=== PATIENT | female | born 1985 | race Caucasian/White ===

== ENCOUNTER 2017-03-21 16:34 | Inpatient (IN) | payer OTHER ==
[2017-03-21] MEDS: ACETAMINOPHEN 325 MG TAB PO (18:48)
[2017-03-21] MEDS: SOD CHLORIDE 0.9% 1,000 ML IV (18:48)
[2017-03-21 19:01] LABS: ADD MAN DIFF? NO
[2017-03-21 19:06] LABS: WHITE BLOOD COUNT 12.5 10^3/ul (4.8-10.8)
[2017-03-21 19:06] LABS: HEMATOCRIT 34.5 % (37.0-47.0); HEMOGLOBIN 11.6 g/dl (12.0-16.0); MEAN CORPUSCULAR HEMOGLOBIN 26.5 pg (29.0-33.0); MEAN CORPUSCULAR HGB CONC 33.6 g/dl (32.0-37.0); MEAN CORPUSCULAR VOLUME 78.9 fl (82.0-101.0); RED BLOOD COUNT 4.37 10^6/ul (4.20-5.40)
[2017-03-21 19:07] LABS: BASOPHILS % 0.2 % (0.0-2.0); EOSINOPHILS % 0.1 % (0.0-7.0); LYMPHOCYTES # 1.5 10^3/ul (0.8-2.9); LYMPHOCYTES % 12.1 % (15.0-51.0); MEAN PLATELET VOLUME 10.2 fl (7.4-10.4); MONOCYTE # 0.5 10^3/ul (0.3-0.9); NEUTROPHIL # 10.4 10^3/ul (1.6-7.5); NEUTROPHILS % 83.1 % (39.0-77.0); PLATELET COUNT 286 10^3/UL (140-415); RED CELL DISTRIBUTION WIDTH 16.4 % (11.5-14.5)
[2017-03-21 19:23] LABS: ADD UMIC YES; UR ASCORBIC ACID 20 mg/dL (NEGATIVE); UR BACTERIA FEW /HPF (NONE SEEN); UR BILIRUBIN (Dip) NEGATIVE (NEGATIVE); UR BLOOD (Dip) NEGATIVE (NEGATIVE); UR CLARITY CLOUDY (CLEAR); UR COLOR AMBER (YELLOW); UR GLUCOSE (Dip) NEGATIVE (NEGATIVE); UR KETONES (Dip) TRACE mg/dL (NEGATIVE); UR LEUKOCYTE ESTERASE (Dip) 3+ Leu/ul (NEGATIVE); UR MUCUS MODERATE /HPF (NONE SEEN); UR NITRITE (Dip) NEGATIVE (NEGATIVE); UR RBC 13 /HPF (0-5); UR SQUAMOUS EPITHELIAL CELL FEW /HPF (FEW); UR TOTAL PROTEIN (Dip) 2+ mg/dl (NEGATIVE); UR UROBILINOGEN (Dip) 1+ mg/dL (NEGATIVE); UR WBC 37 /HPF (0-5)
[2017-03-21 19:30] LABS: ANION GAP 20 (8-16); BLOOD UREA NITROGEN 7 mg/dl (7-20); CALCIUM 9.4 mg/dl (8.4-10.2); CARBON DIOXIDE 22 mmol/L (21-31); CHLORIDE 102 mmol/L (97-110); CREATININE 0.67 mg/dl (0.44-1.00); GLUCOSE 98 mg/dl (70-220); POTASSIUM 3.9 mmol/L (3.5-5.1); SODIUM 140 mmol/L (135-144)
[2017-03-21 20:29] LABS: INR 1.23; PROTIME 15.7 Sec (11.9-14.9); PT RATIO 1.2
[2017-03-21 20:30] LABS: PARTIAL THROMBOPLASTIN TIME 37.3 Sec (25.0-35.0)
[2017-03-21] MEDS: CEFTRIAXONE 1 GM/50 ML (PMX) 50 ML IVPB (20:30)
[2017-03-21] MEDS: SODIUM CHLORIDE 0.9% 1L BAG IV* (20:30)
[2017-03-21 20:46] LABS: LACTIC ACID 0.9 mmol/L (0.5-2.0)
[2017-03-21] MEDS ORDERED: ONDANSETRON 4 MG INJ IV (23:30)
[2017-03-21] MEDS ORDERED: ACETAMINOPHEN 325 MG TAB PO (23:30)
[2017-03-22] MEDS ORDERED: BISACODYL (EC) 5 MG TAB PO
[2017-03-22] MEDS ORDERED: ONDANSETRON 4 MG TAB PO
[2017-03-22] MEDS ORDERED: morphine 2 MG INJ IV
[2017-03-22] MEDS ORDERED: DOCUSATE SODIUM 100 MG CAP PO
[2017-03-22] MEDS ORDERED: NACL 0.9% 3 ML SYG IV
[2017-03-22] MEDS: SOD CHLORIDE 0.9% 1,000 ML IV ×4 (01:06→20:32)
[2017-03-22] MEDS: HYDROCODONE/APAP (5/325) TAB PO (01:29)
[2017-03-22 01:41] LABS: LACTIC ACID 1.5 mmol/L (0.5-2.0)
[2017-03-22] MEDS: LEVOFLOXACIN 750MG/D5W (PMX) 150 ML IVPB (01:49)
[2017-03-22] MEDS: ACETAMINOPHEN 325 MG TAB PO (03:32)
[2017-03-22 05:28] LABS: ADD MAN DIFF? NO
[2017-03-22] MEDS: ACETAMINOPHEN 1000MG/100ML IV 100 ML IVPB ×4 (05:31→20:27)
[2017-03-22 05:50] LABS: WHITE BLOOD COUNT 9.6 10^3/ul (4.8-10.8)
[2017-03-22 05:50] LABS: BASOPHILS % 0.4 % (0.0-2.0); EOSINOPHILS % 0.1 % (0.0-7.0); HEMATOCRIT 28.2 % (37.0-47.0); HEMOGLOBIN 9.5 g/dl (12.0-16.0); LYMPHOCYTES # 1.4 10^3/ul (0.8-2.9); LYMPHOCYTES % 15.1 % (15.0-51.0); MEAN CORPUSCULAR HGB CONC 33.7 g/dl (32.0-37.0); MEAN CORPUSCULAR VOLUME 80.1 fl (82.0-101.0); MEAN PLATELET VOLUME 10.2 fl (7.4-10.4); MONOCYTE # 0.6 10^3/ul (0.3-0.9); MONOCYTES % 6.5 % (0.0-11.0); NEUTROPHIL # 7.4 10^3/ul (1.6-7.5); NEUTROPHILS % 77.4 % (39.0-77.0); PLATELET COUNT 221 10^3/UL (140-415); RED BLOOD COUNT 3.52 10^6/ul (4.20-5.40); RED CELL DISTRIBUTION WIDTH 16.6 % (11.5-14.5)
[2017-03-22 06:22] LABS: ALANINE AMINOTRANSFERASE 28 IU/L (13-69); ALBUMIN/GLOBULIN RATIO 1.07; ALKALINE PHOSPHATASE 54 IU/L (42-121); ANION GAP 13 (8-16); ASPARTATE AMINO TRANSFERASE 14 IU/L (15-46); BILIRUBIN,INDIRECT 0.2 mg/dl (0-1.1); BILIRUBIN,TOTAL 0.2 mg/dl (0.2-1.3); BLOOD UREA NITROGEN 3 mg/dl (7-20); CALCIUM 8.5 mg/dl (8.4-10.2); CARBON DIOXIDE 24 mmol/L (21-31); CHLORIDE 107 mmol/L (97-110); CHOL/HDL RATIO 2.9 RATIO; CHOLESTEROL 105 mg/dl (100-200); CREATININE 0.61 mg/dl (0.44-1.00); GLUCOSE 97 mg/dl (70-220); HDL CHOLESTEROL 36 mg/dl (34-82); LDL CHOLESTEROL,CALCULATED 59 mg/dl; MAGNESIUM 1.7 mg/dl (1.7-2.5); POTASSIUM 4.2 mmol/L (3.5-5.1); SODIUM 140 mmol/L (135-144); TOTAL PROTEIN 5.8 g/dl (6.1-8.1); TRIGLYCERIDES 50 mg/dl (0-149)
[2017-03-22 07:57] LABS: HEMOGLOBIN A1C 5.4 % (0-5.9)
[2017-03-22] MEDS: DIPHENHYDRAMINE 50 MG INJ IV (18:46)
[2017-03-23] MEDS: LEVOFLOXACIN 750MG/D5W (PMX) 150 ML IVPB (00:24)
[2017-03-23] MEDS: ACETAMINOPHEN 1000MG/100ML IV 100 ML IVPB ×2 (05:25→10:54)
[2017-03-23 05:51] LABS: ADD MAN DIFF? NO
[2017-03-23 06:02] LABS: BASOPHILS % 0.6 % (0.0-2.0); EOSINOPHILS # 0.1 10^3/ul (0.0-0.5); HEMOGLOBIN 9.8 g/dl (12.0-16.0); LYMPHOCYTES # 1.9 10^3/ul (0.8-2.9); LYMPHOCYTES % 29.7 % (15.0-51.0); MEAN CORPUSCULAR HEMOGLOBIN 26.3 pg (29.0-33.0); MEAN CORPUSCULAR HGB CONC 32.7 g/dl (32.0-37.0); MEAN CORPUSCULAR VOLUME 80.4 fl (82.0-101.0); MEAN PLATELET VOLUME 10.4 fl (7.4-10.4); MONOCYTE # 0.7 10^3/ul (0.3-0.9); MONOCYTES % 11.5 % (0.0-11.0); NEUTROPHIL # 3.6 10^3/ul (1.6-7.5); NEUTROPHILS % 55.9 % (39.0-77.0); PLATELET COUNT 229 10^3/UL (140-415); RED BLOOD COUNT 3.73 10^6/ul (4.20-5.40); RED CELL DISTRIBUTION WIDTH 16.7 % (11.5-14.5)
[2017-03-23 06:02] LABS: WHITE BLOOD COUNT 6.4 10^3/ul (4.8-10.8)
[2017-03-23 06:51] LABS: MAGNESIUM 1.9 mg/dl (1.7-2.5)
[2017-03-23 06:51] LABS: PHOSPHORUS 3.8 mg/dl (2.5-4.9)
[2017-03-23 07:15] LABS: ALANINE AMINOTRANSFERASE 31 IU/L (13-69); ALBUMIN 3.4 g/dl (3.3-4.9); ALBUMIN/GLOBULIN RATIO 1.21; ALKALINE PHOSPHATASE 63 IU/L (42-121); ANION GAP 15 (8-16); ASPARTATE AMINO TRANSFERASE 21 IU/L (15-46); BILIRUBIN,INDIRECT 0.1 mg/dl (0-1.1); BILIRUBIN,TOTAL 0.1 mg/dl (0.2-1.3); BLOOD UREA NITROGEN 3 mg/dl (7-20); CALCIUM 8.7 mg/dl (8.4-10.2); CARBON DIOXIDE 25 mmol/L (21-31); CHLORIDE 105 mmol/L (97-110); CREATININE 0.53 mg/dl (0.44-1.00); GLUCOSE 91 mg/dl (70-220); POTASSIUM 4.3 mmol/L (3.5-5.1); SODIUM 141 mmol/L (135-144); TOTAL PROTEIN 6.2 g/dl (6.1-8.1)
== END 2017-03-23 13:30 | disposition home or self-care (01) | DRG 872 ==
LOC: MS1 23:08 → FTE 16:34
DX: A41.9 Sepsis, unspecified organism (principal); N12 Tubulo-interstitial nephritis, not specified as acute or chronic; Z98.84 Bariatric surgery status; E66.9 Obesity, unspecified; Z68.31 Body mass index [BMI] 31.0-31.9, adult; D50.9 Iron deficiency anemia, unspecified
CPT/HCPCS: 36415; 74000; 76775; 80048; 80053; 80061; 81001; 83036; 83605; 83735; 84100; 84443; 84703; 85025; 85610; 85730; 87040; 87086; 96361; 96365; 99291-25